=== PATIENT | male | born 1945 | race Caucasian/White ===

== ENCOUNTER → 2017-04-10 | Day surgery (SDC) | payer OTHER ==
[~2017-04-10] MED LIST: BUPIVACAINE/EPINEPHRINE 0.25% PF 30 ML VIAL ONE; LACTATED RINGER'S 1000 ML INJ 1,000 ML ONE; MIDAZOLAM HCL 2 MG/2 ML VIAL ONE; ONDANSETRON HCL 4 MG/2 ML VIAL IV PUSH ONE; PROPOFOL 200 MG/20 ML AMP IV ONE; Z.0.NO CURRENT MEDS; ceFAZolin 2 GM PREMIX 50 ML ONE
--- NOTE | 2017-04-10 20:40 | TN ---
cc: TAY FOFANA MD DATE OF SURGERY 04/10/2017 PREOPERATIVE DIAGNOSIS Left posterior auricular mass. 1.5 x1.0cm POSTOPERATIVE DIAGNOSIS Left posterior auricular mass. PROCEDURE PERFORMED Excision of left posterior auricular soft tissue mass. 1.5x1.0cm SURGEON Dr. Tay Fofana. CHIEF WRITER See OR sheet. ANESTHESIA GETA. IV FLUIDS See anesthesia sheet. ESTIMATED BLOOD LOSS 5 cc. DRAINS None. COMPLICATIONS None. SPECIMENS Left posterior auricular mass sent for pathology, short stitch superior, long stitch posterior. FINDINGS Good hemostasis. Noted the soft tissue mass somewhat adhered to muscle. INDICATIONS The patient is a 71-year-old male who presents with onset of a mass growing behind his ear. This was a slow-growing mass without evidence of skin changes. Decision was made for excision of mass. DETAILS OF THE PROCEDURE The patient was taken to the operating suite, placed in the right lateral decubitus position. He was prepped and draped in the usual sterile fashion to the head, neck area. Brief time-out done stating correct patient, procedure, surgical site. We were all in agreement with this. Local anesthetic injected to infiltrate the posterior ear area. 15 blade used to make a small 2.5 cm incision along the inferior hairline near the mastoid process, the posterior auricular area. Further dissection with electro bovie cautery. Hemostat used to dissect and mobilize the mass along with electrocautery. Mass was marked with a short stitch superior, long stitch posterior and completely excised. The mass was noted to be somewhat adhered to muscular structure. Good hemostasis was noted. The surgical bed was irrigated thoroughly, was closed in layers with a 3-0 Vicryl and a 4-0 Monocryl and sterile dressings including Steri-Strips were placed. The patient tolerated the procedure well. No intraoperative complication. The patient was extubated, taken stable to the PACU. MD MYESHA Barnes/DAGOBERTO /8:08 PM /8:21 PM [facility]
== END | disposition home or self-care (01) ==
LOC: ESDC 09:37
PROVIDERS: ATTEND Surgery
DX: D17.0 Benign lipomatous neoplasm of skin and subcutaneous tissue of head, face and neck (principal)
CPT/HCPCS: 00300; 21555; 88304; J0690; J2250; J2405; J3010; J7120; 88305